=== PATIENT | female | born 1950 | race Caucasian/White ===

== ENCOUNTER → 2019-05-22 | Outpatient (CLI) | payer MEDICARE ==
--- NOTE | 2019-05-22 15:47 | US ---
EXAMINATION TYPE: US pelvis complete transvag DATE OF EXAM: 05/22/2019 COMPARISON: not at this facility CT at [facility] showed cyst. CLINICAL HISTORY: N83.209 CYST OF OVARY. TECHNIQUE: Transvaginal (TV) and Transabdominal (TA) . Date of LMP: Post menopausal, menses ceased at 51. EXAM MEASUREMENTS: Uterus: 6.4 x 2.5 x 3.7 cm Endometrial Stripe: 0.3 cm Right Ovary: 1.5 x 0.9 x 0.7 cm Left Ovary: obscured by bowel/atrophy 1. Uterus: anteverted, wnl 2. Endometrium: wnl 3. Right Ovary: wnl 4. Left Ovary: not sen 5. Bilateral Adnexa: wnl 6. Posterior cul-de-sac: wnl IMPRESSION: Left ovary is not identified due to overlying bowel gas. Right ovary is atrophic but othe rwise unremarkable.
== END | disposition home or self-care (01) ==
LOC: RADUSWWP 14:54
PROVIDERS: ATTEND Family Medicine
DX: N83.311 Acquired atrophy of right ovary (principal)
CPT/HCPCS: 76830; 76856

== ENCOUNTER → 2019-09-08 | Outpatient (CLI) | payer MEDICARE ==
--- NOTE | 2019-09-08 12:10 | US ---
EXAMINATION TYPE: US venous doppler duplex LE RT DATE OF EXAM: 09/08/2019 11:53 AM COMPARISON: None CLINICAL HISTORY: 68-year-old female M25.561 PAIN IN RT KNEE. Patient stated had 11cc fluid drained t jasvir from anterior right knee; c/o right knee soreness after stepping down incorrectly yesterday. SIDE PERFORMED: Right TECHNIQUE: The lower extremity deep venous system is examined utilizing real time linear array sonog tamiko with graded compression, doppler sonography and color-flow sonography. VESSELS IMAGED: Common Femoral Vein Deep Femoral Vein Greater Saphenous Vein * Femoral Vein Popliteal Vein Small Saphenous Vein * Proximal Calf Veins Posterior tibial veins (* superficial vessels) Right Leg: Negative for DVT. Complex fluid collection = 4.2 x 5.0 x 0.6cm is noted anterior right kn ee adjacent to where fluid was withdrawn today. IMPRESSION: 1. No evidence for DVT within the right lower extremity. 2. Residual 5.0 x 4.2 x 0.6 cm prepatellar bursal effusion.
== END | disposition home or self-care (01) ==
LOC: RADUSWWP 11:27
PROVIDERS: ATTEND Orthopaedic Surgery
DX: M25.461 Effusion, right knee (principal); M17.11 Unilateral primary osteoarthritis, right knee; I80.9 Phlebitis and thrombophlebitis of unspecified site

== ENCOUNTER → 2019-12-01 | Outpatient (CLI) | payer MEDICARE ==
--- NOTE | 2019-12-01 15:46 | MR ---
MR left hip HISTORY: Left hip pain Multiplanar multisequence imaging obtained through the pelvis with small [id number] images obtaine d through the left hip No comparisons submitted, there are no plain films. Degenerative disc changes are noted in the lower lumbar spine. There is no evident hip joint effusion . Bone marrow signal is symmetric and within normal limits within the left hip. Articular cartilage s ignal is normal. There is abnormal increased signal on T2-weighted sequences at the insertion of the gluteus tendon at the greater trochanter. There are follicles associated with the left ovary. Uterus is within normal limits, possible small fi broid is noted. No fracture or dislocation. Origins of the hamstring musculature show normal and symm etric appearance. No evident adenopathy. IMPRESSION: Findings consistent with strain or partial tear of the gluteus medius tendon insertion
== END | disposition home or self-care (01) ==
LOC: RADMRIMAIN 13:58
PROVIDERS: ATTEND Orthopaedic Surgery
DX: M25.552 Pain in left hip (principal); M70.62 Trochanteric bursitis, left hip; M54.5 Low back pain

== ENCOUNTER → 2020-03-20 | Outpatient (CLI) | payer MEDICARE | END | disposition home or self-care (01) | LOC: RADMRIMAIN 11:55 | PROVIDERS: ATTEND Physical Medicine & Rehabilitation | DX: Z53.9 Procedure and treatment not carried out, unspecified reason (principal) ==

== ENCOUNTER → 2020-03-22 | Outpatient (CLI) | payer MEDICARE ==
--- NOTE | 2020-03-22 14:01 | MR ---
EXAMINATION TYPE: MR lumbar spine wo con DATE OF EXAM: 03/22/2020 COMPARISON: NONE HISTORY: Low back pain. Spondylosis. Spondylolisthesis all per order. Low back pain into buttocks for over 6 months worse in the left side. History of back surgery. TECHNIQUE: Multiplanar, multisequence imaging of the lumbar spine is performed without IV contrast. FINDINGS: Sagittal images of the lumbar spine show vertebral body heights to appear satisfactory. The re is grade 1 anterolisthesis L3 on L4. Multilevel disc desiccation. Moderate disc space narrowing an d vacuum disc phenomenon L4-L5 level, mild to moderate anterior spurring with heterogeneous Modic typ e II endplate changes. Moderate to severe disc space narrowing with vacuum disc phenomenon and hetero geneous Modic type II endplate changes L5-S1 level, mild anterior spurring. Additional mild/moderate disc space narrowing superior to this. The conus medullaris is normal in position and signal ending a t the inferior L1 level. Axial images at T12-L1 and L1-L2 levels show mild facet degenerative changes bilaterally but spinal c anal is preserved. There are patent Bilateral neural foramina. Axial images at the L2-L3 level mild/moderate broad disc bulge mildly effacing the anterior thecal sa c with mild facet degenerative changes and ligament hypertrophy effacing the posterior lateral thecal sac, patent bilateral neural foramina. Axial images at L3-L4 level shows spondylolisthesis with mild broad disc bulge effacing the anterior thecal sac. Moderate facet degenerative changes and ligament flavum hypertrophy efface the postero-la teral thecal sac. Patent bilateral neural foramina. Axial images at L4-L5 level show mild to moderate facet degenerative changes bilaterally. There is mo st prominent spinal canal stenosis due to broad-based left paracentral disc protrusion on background broad disc bulge axial image 7 corresponding to sagittal image 7. There is effacement of the left lat eral recess and central left L5 nerve. Mild left greater than right bilateral inferior neural foramin al narrowing. Axial images at the L5-S1 level mild facet degenerative changes bilaterally. There is punz-zh-ambnubi e broad disc bulge but the spinal canal is preserved. Patent bilateral neural foramina. There is simple appearing thin-walled cysts in visualized portion of both kidneys. Paraspinal muscle bulk is maintained. IMPRESSION: Multilevel degenerative changes as detailed above. L3-L4 spondylolisthesis is present. Mo st prominent degenerative change L4-L5 level as detailed above, encroachment on the central left L5 n erve is noted.
== END | disposition home or self-care (01) ==
LOC: RADMRIMAIN 12:31
PROVIDERS: ATTEND Physical Medicine & Rehabilitation
DX: M43.16 Spondylolisthesis, lumbar region (principal); M47.26 Other spondylosis with radiculopathy, lumbar region
CPT/HCPCS: 72148

== ENCOUNTER → 2020-08-25 | Outpatient (CLI) | payer MEDICARE ==
[2020-08-25 18:47] LABS: HCT 40.3 % (37.2-46.3); HGB 13.5 g/dL (12.0-15.0); MCHC 33.5 g/dL (32.0-37.0); MCV 89.6 fL (80.0-97.0); Mean Platelet Volume 9.7 fL (9.5-12.2); Platelet Count 295 X 10*3/uL (140-440); RDW 12.8 % (11.5-14.5); WBC 6.68 X 10*3/uL (4.50-10.00)
[2020-08-25 23:44] LABS: African American GFR (CKD) 108.5 (60.0-200.0); Anion Gap 11.9 mmol/L (4.00-12.00); BUN/Creat Ratio 21.67 Ratio (12.00-20.00); Calcium 9.5 mg/dL (8.7-10.3); Carbon Dioxide 27.1 mmol/L (21.6-31.8); Chol/HDL Ratio 5.44; LDL Cholesterol,Calculated 161.4 mg/dL (0.0-131.0); Non-African American GFR(CKD) 93.7 (60.0-200.0); Potassium 3.4 mmol/L (3.5-5.5); VLDL Calculation 38.6 mg/dL (5.00-40.00)
== END | disposition home or self-care (01) ==
LOC: LABWHC1 13:19
PROVIDERS: ATTEND Internal Medicine Interventional Cardiology
DX: E78.5 Hyperlipidemia, unspecified (principal); I10 Essential (primary) hypertension
CPT/HCPCS: 36415; 80048; 80061; 85027

== ENCOUNTER → 2020-09-01 | Outpatient (CLI) | payer MEDICARE ==
[2020-09-01 19:45] LABS: African American GFR (CKD) 103.2 (60.0-200.0); Anion Gap 8.6 mmol/L (4.00-12.00); BUN/Creat Ratio 24.29 Ratio (12.00-20.00); Calcium 9.2 mg/dL (8.7-10.3); Carbon Dioxide 27.4 mmol/L (21.6-31.8); Chol/HDL Ratio 5.1; LDL Cholesterol,Calculated 157.2 mg/dL (0.0-131.0); Potassium 3.9 mmol/L (3.5-5.5); VLDL Calculation 43.8 mg/dL (5.00-40.00)
== END | disposition home or self-care (01) ==
LOC: LABWHC1 08:52
PROVIDERS: ATTEND Internal Medicine Interventional Cardiology
DX: I10 Essential (primary) hypertension (principal); E78.2 Mixed hyperlipidemia
CPT/HCPCS: 36415; 80048; 80061

== ENCOUNTER → 2021-03-10 | Outpatient (CLI) | payer MEDICARE | END | disposition home or self-care (01) | LOC: LABWHC1 11:34 | PROVIDERS: ATTEND Nurse Practitioner | DX: Z53.9 Procedure and treatment not carried out, unspecified reason (principal) ==

== ENCOUNTER → 2021-03-11 | Outpatient (CLI) | payer MEDICARE ==
[2021-03-11 16:17] LABS: African American GFR (CKD) 96.3 (60.0-200.0); Anion Gap 11.5 mmol/L (10.00-18.00); BUN/Creat Ratio 30.12 Ratio (12.00-20.00); Blood Urea Nitrogen 22.2 mg/dL (9.0-27.0); Carbon Dioxide 25.9 mmol/L (20.0-27.5); Non-African American GFR(CKD) 83.1 (60.0-200.0); Potassium 3.9 mmol/L (3.5-5.5)
== END | disposition home or self-care (01) ==
LOC: LABWHC1 08:25
PROVIDERS: ATTEND Nurse Practitioner
DX: I10 Essential (primary) hypertension (principal)
CPT/HCPCS: 36415; 80048

== ENCOUNTER → 2021-05-18 | Outpatient (CLI) | payer MEDICARE ==
[2021-05-18 14:41] LABS: Basophils # (A) 0.02 X 10*3/uL (0.00-0.10); Basophils % (A) 0.2 %; Eosinophils # (A) 0.12 X 10*3/uL (0.04-0.35); Eosinophils % (A) 1.4 %; HCT 37.5 % (37.2-46.3); HGB 12.2 g/dL (12.0-15.0); Immature Grans, Automated 0.2 %; Lymphocytes # (A) 1.54 X 10*3/uL (0.90-5.00); Lymphocytes % (A) 17.7 %; MCH 30.3 pg (27.0-32.0); MCHC 32.5 g/dL (32.0-37.0); MCV 93.1 fL (80.0-97.0); Monocytes # (A) 0.67 X 10*3/uL (0.20-1.00); Monocytes % (A) 7.7 %; NRBC Per 100 WBC 0 /100 WBCS (0.0-0.0); Neutrophils # (A) 6.32 X 10*3/uL (1.80-7.70); Neutrophils % (A) 72.8 %; Platelet Count 219 X 10*3/uL (140-440); RBC 4.03 X 10*6/uL (4.10-5.20); RDW 12.8 % (11.5-14.5); WBC 8.69 X 10*3/uL (4.50-10.00)
[2021-05-18 14:47] LABS: African American GFR (CKD) 104.5 (60.0-200.0); Anion Gap 11.5 mmol/L (10.00-18.00); BUN/Creat Ratio 29.59 Ratio (12.00-20.00); Blood Urea Nitrogen 19.5 mg/dL (9.0-27.0); Calcium 9.3 mg/dL (8.7-10.3); Carbon Dioxide 27.6 mmol/L (20.0-27.5); Non-African American GFR(CKD) 90.2 (60.0-200.0); Potassium 3.5 mmol/L (3.5-5.5)
[2021-05-18 16:48] LABS: Appearance,Urine Clear (Clear); Bacteria,Urine None Seen /HPF (None Seen); Bilirubin,Urine Negative (Negative); Blood,Urine Negative (Negative); Color,Urine Yellow (Yellow); Ketones,Urine Negative (Negative); Leukocyte Esterase,Urine Small (Negative); Nitrite,Urine Negative (Negative); PH, Urine 6.5 (5.0-8.0); Protein,Urine Negative (Negative); RBC,Urine 0-2 /HPF (0-2); Specific Gravity,Urine 1.012 (1.001-1.030); WBC,Urine 0-5 /HPF (0-5)
== END | disposition home or self-care (01) ==
LOC: LABWHC1 09:34
PROVIDERS: ATTEND Urology
DX: Z01.812 Encounter for preprocedural laboratory examination (principal); N39.3 Stress incontinence (female) (male)
CPT/HCPCS: 36415; 80048; 81001; 85025; 87086

== ENCOUNTER 2021-05-25 08:37 | Day surgery (SDC) | payer MEDICARE ==
[2021-05-23 14:28] VITALS: BMI 22.6
--- NOTE | 2021-05-24 18:10 | P.GSHP ---
History of Present Illness H&P Date: 05/24/21 70 yo female with mixed urinary incontinence. She was treated by a previous urologist for urgency incontinence with anticholinergics that failed. By history she has 4 ppd shikha. SHe has failed kegal exercises. She underwent urodynamics that didnt support her previous urgency incontinence. We discussed treatment for her 4ppd shikha Her exam and uds showed a hypermobile urethra and and higher lpp. SHe was given multiple treatment options. She comes for a transobturator tape with obtyrx graft. The risks and complications have been discussed including the mesh controversy. - Constitutional Constitutional: Denies chills, Denies fever - EENT Eyes: denies blurred vision, denies pain Ears, nose, mouth and throat: Denies headache, Denies sore throat - Cardiovascular Cardiovascular: Denies chest pain, Denies shortness of breath - Respiratory Respiratory: Denies cough, Denies 7 - Gastrointestinal Gastrointestinal: Denies abdominal pain, Denies diarrhea, Denies nausea, Denies vomiting - Genitourinary (Female) Genitourinary: Denies dysuria, Denies hematuria - Genitourinary (Male) Genitourinary: Denies dysuria, Denies hematuria - Musculoskeletal Musculoskeletal: Denies myalgias - Integumentary Integumentary: Denies pruritus, Denies rash - Neurological Neurological: Denies numbness, Denies weakness - Psychiatric Psychiatric: Denies anxiety, Denies depression - Endocrine Endocrine: Denies fatigue, Denies weight change Past Medical History Past Medical History: Cancer, GERD/Reflux, Hypertension, Musculoskeletal Disorder Additional Past Medical History / Comment(s): frequent UTIs and leakage, hx sarcoidosis, pain back L5 and down rt leg-resolved,basal cell skin CA-removed History of Any Multi-Drug Resistant Organisms: None Reported Past Surgical History: Back Surgery, Cholecystectomy, Orthopedic Surgery Additional Past Surgical History / Comment(s): upper C3 cervical fusion; L5 low back fusion,pain procedures,benign left breast lump removed Past Anesthesia/Blood Transfusion Reactions: Previous Problems w/ Anesthesia Additional Past Anesthesia/Blood Transfusion Reaction / Comment(s): "hard time waking up" Smoking Status: Never smoker - Past Family History Father Family Medical History: Cancer Additional Family Medical History / Comment(s): thyroid CA Mother Family Medical History: No Reported History Medications and Allergies Home Medications Medication Instructions Recorded Confirmed Type Metoprolol Tartrate [Lopressor] 25 mg PO QAM 10/12/14 05/23/21 History Atorvastatin [Lipitor] 20 mg PO DAILY 05/23/21 05/23/21 History Famotidine 20 mg PO BID 05/23/21 05/23/21 History Lisinopril-Hctz 10-12.5 mg 1 tab PO 1200 05/23/21 05/23/21 History [Zestoretic 10-12.5] Potassium Chloride ER [K-Dur 20] 20 meq PO HS 05/23/21 05/23/21 History Vit C/E/Zn/Coppr/Lutein/Zeaxan 1 tab PO HS 05/23/21 05/23/21 History [Preservision Areds 2 Chew Tab] busPIRone HCL 10 mg PO HS 05/23/21 05/23/21 History hydrALAZINE HCL 25 mg PO TID 05/23/21 05/23/21 History Allergies Allergy/AdvReac Type Severity Reaction Status Date / Time codeine Allergy Rash/Hives Verified 05/23/21 14:14 Penicillins Allergy Rash/Hives Verified 05/23/21 14:14 shellfish derived [Shellfish] Allergy Nausea & Verified 05/23/21 14:14 Vomiting Sulfa (Sulfonamide Allergy Rash/Hives, Verified 05/23/21 14:14 Antibiotics) Headaches Surgical - Exam - General well developed, well nourished, no distress - Eyes normal ocular movement, no icteric - ENT no hearing loss, no congestion - Neck no masses, trachea midline - Respiratory normal respiratory effort, clear to auscultation - Abdomen Abdomen: soft, non tender, no guarding, no rigid, no rebound - Genitourinary hypermobile urethra with shikha, positive nayeli test. no normal external genitalia, no normal perineum, no perineal/vulvar lesions, no other - Integumentary no rash, no abnormal pigmentation - Neurologic no disoriented, no combative - Psychiatric oriented to time, oriented to person, oriented to place, speech is normal, memory intact Assessment and Plan Assessment: Impression: SHIKHA Plan: TOT with obtyrx graft, cystoscopy
[~2021-05-25 08:37] MED LIST: GENTAMICIN 90 MG in SODIUM CHLORIDE 0.9% 100 ML IVPB PRN
[2021-05-25] MEDS ORDERED: ONDANSETRON 4 MG/2 ML VIAL IVP ONE (08:52)
[2021-05-25] MEDS ORDERED: HYDROmorphone 0.5 MG/0.5 ML SYRINGE IVP PRN (08:52)
[2021-05-25] MEDS ORDERED: LACTATED RINGERS 1,000 ML IV SCH (08:52)
[2021-05-25] MEDS ORDERED: LIDOCAINE 1% (10MG/ML) FOR IV START INTRADERMA PRN (08:52)
[2021-05-25] MEDS ORDERED: DEXAMETHASONE SOD PHOSPHATE 4 MG/ML 1 ML VIAL IV ONE (08:52)
[2021-05-25] MEDS ORDERED: METOPROLOL TARTRATE 5 MG/5 ML VIAL IVP ONE (09:58)
[2021-05-25] MEDS ORDERED: HYDROmorphone (PF) 1 MG/ML ONE (09:58)
[2021-05-25] MEDS ORDERED: SUCCINYLCHOLINE CHLORIDE 100 MG/5 ML SYR IV ONE (09:58)
[2021-05-25] MEDS ORDERED: MIDAZOLAM 2 MG/2 ML VIAL ONE (09:58)
[2021-05-25] MEDS ORDERED: PROPOFOL 10 MG/ML 20 ML VIAL IV ONE (09:58)
[2021-05-25] MEDS ORDERED: fentaNYL (PF) 50 MCG/ML 2 ML AMP ONE (09:58)
[2021-05-25] MEDS ORDERED: LIDOCAINE 1% INJ 10MG/ML (20 ML MDV) ONE (09:58)
[2021-05-25] MEDS ORDERED: VASOPRESSIN 20 UNIT/ML 1 ML VIAL SQ ONE (10:03)
[2021-05-25] MEDS ORDERED: GENTAMICIN 80 MG in SODIUM CHLORIDE 0.9% 500 ML 500 ML IRRIGATION ONE (10:24)
[2021-05-25] MEDS ORDERED: BACITRACIN ZINC 500 UNIT/GM OINT 28.4 GM TUBE TOPICAL ONE (10:28)
[2021-05-25] MEDS ORDERED: KETOROLAC 15 MG/ML 1 ML VIAL IVP PRN (10:55)
[2021-05-25] MEDS ORDERED: HYDROcodone/APAP 5-325MG 1 EACH TAB PO PRN (10:57)
[2021-05-25] MEDS ORDERED: ONDANSETRON 4 MG/2 ML VIAL IVP PRN (10:57)
--- NOTE | 2021-05-25 11:02 | P.OP ---
Date of Procedure: 05/25/21 Preoperative Diagnosis: Stress urinary incontinence Postoperative Diagnosis: Same Procedure(s) Performed: Cystoscopy with trans-obturator tape (obtyrx 2) Anesthesia: ADAL Surgeon: Phillip Nguyen Pathology: none sent Condition: stable Disposition: PACU Indications for Procedure: The patient is 70. She has documented stress urinary incontinence. She comes for a trans-obturator tape cystoscopy the risks including mesh controversy, alternatives have been discussed Description of Procedure: The patient is brought to the operating suite. She is given a general endotracheal anesthesia. She's placed in lithotomy position with a sterile prep and drape. The labia are sewn laterally with 2-0 silk. A vaginal speculum was introduced. A 16-Paraguayan Parson catheters introduced. The anterior vaginal mucosa is elevated off the submucosa with 10 mL of a mixture of 20 g of Pitres sin and 200 mL of saline and a midline suburethral incision is made. I dissect lateral the bladder neck bilaterally. The space is irrigated thoroughly with antibiotic irrigation. Incisions in the inguinal crease at the level of the clitoris are made bilaterally. The graft introducers or introduced through these incisions through the obturator foramen into the vaginal space bilaterally. I then removed the Parson and pass the 17-Paraguayan sheath and Foroblique lens for the cystoscope to inspect the bladder to make sure there is no evidence of perforation of the bladder and there is none. I then attached the grafted introducers and pull the graft into the suburethral position. Redundant graft at the inguinal incision is removed. The sheath is removed. Graft lay nicely in the mid urethra without tension. The vaginal mucosa was closed with a running 3-0 Vicryl. A vaginal packing with 2 inch Rebel antibiotic ointment is placed in the vagina. The inguinal incisions are closed with 4-0 Vicryl. The urine remains clear. The patient is awakened and returned recovery room in good condition. She tolerated the procedure well be placed in the hospital overnight. Since 25 mL. Her condition is good.
[2021-05-25] MEDS ORDERED: LISINOPRIL-HCTZ 10-12.5 MG 1 EACH TAB PO SCH (12:00)
[2021-05-25 13:54] VITALS: RESP 16
[2021-05-25] MEDS: hydrALAZINE HCL 25 MG TAB PO SCH ×2 (16:23→20:23)
[2021-05-25] MEDS: FAMOTIDINE 20 MG TAB PO SCH (20:23)
[2021-05-25] MEDS ORDERED: busPIRone HCl 10 MG TAB PO SCH (21:00)
[2021-05-25] MEDS ORDERED: POTASSIUM CHLORIDE ER 20 MEQ TAB.ER PO SCH (21:00)
--- NOTE | 2021-05-26 07:15 | P.DS ---
Providers Attending physician: Phillip Nguyen Primary care physician: [facility] Course: The patient was admitted to the hospital 05/25/2021 for a trans-obturator tape/cystoscopy for her stress incontinence. This was done uneventfully. Postoperatively other than some mild discomfort she did well. Vital signs are stable and she is afebrile. The catheter and the packing of been removed this morning. She has not voided yet. If she voids alright she'll be discharged home. She'll go home on a regular diet limited activity. She'll resume her home medication. She'll follow-up in the office next week. A small prescription of Atlantic has been given. Postoperative instructions have been given. Patient Condition at Discharge: Good Plan - Discharge Summary Discharge Rx Participant: No New Discharge Prescriptions: New HYDROcodone/APAP 5-325MG [Atlantic 5-325] 1 tab PO Q4HR PRN #10 tab PRN Reason: Pain No Action Metoprolol Tartrate [Lopressor] 25 mg PO QAM Potassium Chloride ER [K-Dur 20] 20 meq PO HS Famotidine 20 mg PO BID Lisinopril-Hctz 10-12.5 mg [Zestoretic 10-12.5] 1 tab PO 1200 Atorvastatin [Lipitor] 20 mg PO DAILY busPIRone HCL 10 mg PO HS hydrALAZINE HCL 25 mg PO TID Vit C/E/Zn/Coppr/Lutein/Zeaxan [Preservision Areds 2 Chew Tab] 1 tab PO HS Discharge Medication List Metoprolol Tartrate [Lopressor] 25 mg PO QAM 10/12/14 [History] Atorvastatin [Lipitor] 20 mg PO DAILY 05/23/21 [History] Famotidine 20 mg PO BID 05/23/21 [History] Lisinopril-Hctz 10-12.5 mg [Zestoretic 10-12.5] 1 tab PO 1200 05/23/21 [History] Potassium Chloride ER [K-Dur 20] 20 meq PO HS 05/23/21 [History] Vit C/E/Zn/Coppr/Lutein/Zeaxan [Preservision Areds 2 Chew Tab] 1 tab PO HS 05/23/21 [History] busPIRone HCL 10 mg PO HS 05/23/21 [History] hydrALAZINE HCL 25 mg PO TID 05/23/21 [History] HYDROcodone/APAP 5-325MG [Atlantic 5-325] 1 tab PO Q4HR PRN #10 tab 05/26/21 [Rx] Follow up Appointment(s)/Referral(s): Phillip Nguyen MD [STAFF PHYSICIAN] - 06/01/21 Discharge Disposition: HOME SELF-CARE
[2021-05-26] MEDS: FAMOTIDINE 20 MG TAB PO SCH (08:07)
[2021-05-26] MEDS: hydrALAZINE HCL 25 MG TAB PO SCH (08:07)
[2021-05-26] MEDS ORDERED: ATORVASTATIN 20 MG TAB PO SCH (09:00)
[2021-05-26] MEDS ORDERED: METOPROLOL TARTRATE 25 MG TAB PO SCH (09:00)
[2021-05-26 09:01] VITALS: BP 163/74; PULSE 84; TEMP 98.1
== END 2021-05-26 09:53 | disposition home or self-care (01) ==
LOC: OR 08:37 → 4FBP 10:45 → OR 05-26 09:53
PROVIDERS: ATTEND Urology
DX: N39.3 Stress incontinence (female) (male) (principal); I10 Essential (primary) hypertension; K21.9 Gastro-esophageal reflux disease without esophagitis; M54.9 Dorsalgia, unspecified; Z87.440 Personal history of urinary (tract) infections; Z85.828 Personal history of other malignant neoplasm of skin; Z79.899 Other long term (current) drug therapy; Z88.2 Allergy status to sulfonamides; Z88.5 Allergy status to narcotic agent; Z88.0 Allergy status to penicillin; Z91.013 Allergy to seafood; Z90.49 Acquired absence of other specified parts of digestive tract; Z98.890 Other specified postprocedural states; Z98.1 Arthrodesis status; Z80.8 Family history of malignant neoplasm of other organs or systems
CPT/HCPCS: 57288; C1771; J2250; J1580 ×2; J1100; J2405; J2001; J3010; J1170 ×2; J0330; J2704

== ENCOUNTER → 2022-06-28 | Outpatient (CLI) | payer MEDICARE ==
--- NOTE | 2022-06-28 14:41 | CT ---
EXAMINATION TYPE: CT abdomen pelvis wo con CT DLP: 324.3 mGycm, Automated exposure control for dose reduction was used. DATE OF EXAM: 06/28/2022 1:03 PM COMPARISON: None CLINICAL INDICATION:Female, 71 years old with history of N20.0 Kidney stone protocol; Bilateral flank pain and frequent UTI's. TECHNIQUE: Standard CT of the abdomen and pelvis without IV or oral contrast. Lack of IV or oral co ntrast limits evaluation of solid and hollow organ viscera. Coronal and sagittal reformats were perfo rmed. FINDINGS: LOWER CHEST: Unremarkable ABDOMEN LIVER: Unremarkable noncontrast appearance. GALLBLADDER AND BILE DUCTS: The gallbladder is surgically absent. PANCREAS: Unremarkable noncontrast appearance. SPLEEN: Unremarkable noncontrast appearance. ADRENAL GLANDS: Unremarkable noncontrast appearance. KIDNEYS AND URETERS: No evidence of hydronephrosis. There are 3 nonobstructive right renal calculi wi th largest measuring up to 3.5 mm. No left renal calculi identified. Bilateral renal cysts identified with largest involving the right kidney measuring up to 4.5 cm. PELVIS BLADDER: Incompletely distended but grossly unremarkable. REPRODUCTIVE: Unremarkable. ABDOMEN & PELVIS STOMACH AND BOWEL: Stomach is unremarkable. Diverticulum involving second/third portion of the duoden um. Distal colonic diverticulosis without evidence for acute diverticulitis. No evidence of bowel obs truction. PERITONEUM: No evidence of pneumoperitoneum or free fluid. VASCULATURE: Moderate atherosclerotic calcifications are present throughout the abdominal aorta and i ts branches. No evidence of aortic aneurysm. MUSCULOSKELETAL: No acute osseous abnormalities. Degenerative changes of the pubic symphysis and visu alized spine. LYMPH NODES: No gross evidence for lymphadenopathy. SOFT TISSUE/ABDOMINAL WALL: Unremarkable IMPRESSION: 1. No acute abdominal/pelvic process. No evidence of obstructive uropathy. 2. Nonobstructive right renal calculi. 3. Colonic diverticulosis without evidence for acute diverticulitis.
== END | disposition home or self-care (01) ==
LOC: RADCTMAIN 12:44
PROVIDERS: ATTEND Family Medicine
DX: N20.0 Calculus of kidney (principal); K57.30 Diverticulosis of large intestine without perforation or abscess without bleeding
CPT/HCPCS: 74176

== ENCOUNTER → 2022-11-24 | Outpatient (CLI) | payer MEDICARE ==
--- NOTE | 2022-11-24 14:55 | MR ---
EXAMINATION TYPE: MR hip RT wo con DATE OF EXAM: 11/24/2022 COMPARISON: CT abdomen and pelvis June 28, 2022 HISTORY: Right hip pain, locking, limited movement for one year without improvement with physical the rapy. Unilateral primary osteoarthritis and trochanteric bursitis per order. Standard multiplanar, multisequence MRI departmental protocol Multiplanar, multisequence images of the pelvis focusing on right hip were acquired without contrast. FINDINGS: Symmetric moderate axial joint space loss and mild acetabular spurring is present. There ar e small hip joint effusions presumed physiologic bilaterally. Femoral head shapes are maintained bila terally. No suspicious increased T2 signal or osseous edema. No serpiginous diminished T1 signal or a vascular necrosis is evident bilaterally. Increased fluid signal at level of greater trochanters bila terally more prominent on the right consistent with trochanteric bursitis/insertional tendinosis is n oted. Muscle bulk is maintained bilaterally and symmetric in appearance. There is no groin hernia or suspicious adenopathy seen bilaterally. Urinary bladder appears within normal limits. Anteverted uterus is seen. Left ovary has a few small s imple appearing thin-walled cysts on axial image 27. No suspicious bowel dilatation is seen. A few di stal colonic diverticula are seen. No free fluid in the pelvis is noted. IMPRESSION: Fairly moderate degenerative changes of both hips as detailed above. Right greater than l eft trochanteric bursitis/insertional tendinosis is also noted.
== END | disposition home or self-care (01) ==
LOC: RADMRIMAIN 05:46
PROVIDERS: ATTEND Orthopaedic Surgery
DX: M70.61 Trochanteric bursitis, right hip (principal); M16.11 Unilateral primary osteoarthritis, right hip; M70.62 Trochanteric bursitis, left hip; M16.0 Bilateral primary osteoarthritis of hip

== ENCOUNTER 2022-12-11 18:06 | Emergency (ER) | payer MEDICARE ==
[2022-12-11 18:18] VITALS: TEMP 98.1
[2022-12-11 18:51] LABS: ALT 22 U/L (4-34); AST 28 U/L (14-36); African American GFR (CKD) >90 (>60 ml/min/1.73 sqM); Albumin 4.4 g/dL (3.5-5.0); Alkaline Phosphatase 128 U/L (38-126); Anion Gap 12 mmol/L; Blood Urea Nitrogen 15 mg/dL (7-17); Calcium 9.3 mg/dL (8.4-10.2); Carbon Dioxide 26 mmol/L (22-30); Chloride 104 mmol/L (98-107); Glucose 121 mg/dL (74-99); Non-African American GFR(CKD) 89 (>60 ml/min/1.73 sqM); Potassium 3.4 mmol/L (3.5-5.1); Sodium 142 mmol/L (137-145); Total Bilirubin 0.9 mg/dL (0.2-1.3); Total Protein 7.1 g/dL (6.3-8.2)
[2022-12-11 18:57] LABS: INR 0.9 (<1.2); Partial Thromboplastin Time 23.6 sec (22.0-30.0); Prothrombin Time 9.7 sec (9.0-12.0)
[2022-12-11 19:00] LABS: Basophils % (A) 0 %; Eosinophils # (A) 0.2 k/uL (0-0.7); Eosinophils % (A) 4 %; HCT 36.9 % (34.0-46.0); HGB 12.7 gm/dL (11.4-16.0); Lymphocytes # (A) 1.5 k/uL (1.0-4.8); Lymphocytes % (A) 24 %; MCH 30.4 pg (25.0-35.0); MCHC 34.4 g/dL (31.0-37.0); MCV 88.6 fL (80.0-100.0); Mean Platelet Volume 7.9; Monocytes # (A) 0.4 k/uL (0-1.0); Monocytes % (A) 7 %; Neutrophils % (A) 64 %; Platelet Count 160 k/uL (150-450); RBC 4.16 m/uL (3.80-5.40); RDW 13.7 % (11.5-15.5); WBC 6.2 k/uL (3.8-10.6)
--- NOTE | 2022-12-11 20:05 | XR ---
EXAMINATION TYPE: XR chest 2V DATE OF EXAM: 12/11/2022 8:00 PM CLINICAL INDICATION:Female, 71 years old with history of Chest Pain; PHH COMPARISON: None TECHNIQUE: XR chest 2V Frontal and lateral views of the chest. FINDINGS: Lungs/Pleura: There is flattening of the diaphragm with increased lucency of the lungs. No evidence o f pneumothorax, pleural effusion or focal consolidation. Pulmonary vascularity: Unremarkable. Heart/mediastinum: Cardiomediastinal silhouette is unremarkable. Musculoskeletal: No acute osseous pathology. There is fixation hardware in the lower cervical spine. IMPRESSION: 1. No acute cardiopulmonary disease process. 2. COPD changes.
--- NOTE | 2022-12-11 20:43 | ED ---
Chest Pain HPI - General Chief Complaint: Chest Pain Stated Complaint: Chest Pain,Sob Time Seen by Provider: 12/11/22 20:34 Source: patient, RN notes reviewed, old records reviewed Mode of arrival: wheelchair Limitations: no limitations - History of Present Illness Initial Comments: This is a 72-year-old female to the emergency department for evaluation. Patient presents today for evaluation regards to chest pain. Patient has persistent chest pain here in the ER the patient's chest pain began about an hour prior to arrival. Patient is no travel show sick contacts no current shortness of breath. No recent fever cough or congestion. No history of heart disease no high blood pressure high cholesterol no diabetes nonsmoker with no family history of heart disease - Related Data Home Medications Medication Instructions Recorded Confirmed Metoprolol Tartrate [Lopressor] 25 mg PO QAM 10/12/14 05/23/21 Atorvastatin [Lipitor] 20 mg PO DAILY 05/23/21 05/23/21 Famotidine 20 mg PO BID 05/23/21 05/23/21 Lisinopril-Hctz 10-12.5 mg 1 tab PO 1200 05/23/21 05/23/21 [Zestoretic 10-12.5] Potassium Chloride ER [K-Dur 20] 20 meq PO HS 05/23/21 05/23/21 Vit C/E/Zn/Coppr/Lutein/Zeaxan 1 tab PO HS 05/23/21 05/23/21 [Preservision Areds 2 Chew Tab] busPIRone HCL 10 mg PO HS 05/23/21 05/23/21 hydrALAZINE HCL 25 mg PO TID 05/23/21 05/23/21 Previous Rx's Medication Instructions Recorded HYDROcodone/APAP 5-325MG [[place] 1 tab PO Q4HR PRN #10 tab 05/26/21 5-325] Allergies Allergy/AdvReac Type Severity Reaction Status Date / Time codeine Allergy Rash/Hives Verified 12/11/22 18:13 Penicillins Allergy Rash/Hives Verified 12/11/22 18:13 shellfish derived [Shellfish] Allergy Nausea & Verified 12/11/22 18:13 Vomiting Sulfa (Sulfonamide Allergy Rash/Hives, Verified 12/11/22 18:13 Antibiotics) Headaches Review of Systems ROS Statement: Those systems with pertinent positive or pertinent negative responses have been documented in the HPI. ROS Other: All systems not noted in ROS Statement are negative. EKG Findings - EKG Comments: EKG Findings:: EKG is sinus 83 RI 158 QRS 110 QTc 432 - EKG Results: EKG: interpreted by ARNOL Past Medical History Past Medical History: GERD/Reflux, Hypertension, Musculoskeletal Disorder Additional Past Medical History / Comment(s): sarcoidosis, pain back L5 and down rt leg History of Any Multi-Drug Resistant Organisms: None Reported Past Surgical History: Back Surgery, Cholecystectomy, Orthopedic Surgery, Tonsillectomy Additional Past Surgical History / Comment(s): upper C3 cervical fusion; L5 low back fusion Past Anesthesia/Blood Transfusion Reactions: Previous Problems w/ Anesthesia Additional Past Anesthesia/Blood Transfusion Reaction / Comment(s): "hard time waking up" Past Psychological History: No Psychological Hx Reported Smoking Status: Never smoker Past Alcohol Use History: Occasional Past Drug Use History: None Reported - Past Family History Father Family Medical History: Cancer Mother Family Medical History: No Reported History General Exam Limitations: no limitations General appearance: alert, in no apparent distress Head exam: Present: atraumatic, normocephalic, normal inspection Eye exam: Present: normal appearance, PERRL, EOMI. Absent: scleral icterus, conjunctival injection, periorbital swelling ENT exam: Present: normal exam, mucous membranes moist Neck exam: Present: normal inspection. Absent: tenderness, meningismus, lymphadenopathy Respiratory exam: Present: normal lung sounds bilaterally. Absent: respiratory distress, wheezes, rales, rhonchi, stridor Cardiovascular Exam: Present: regular rate, normal rhythm, normal heart sounds. Absent: systolic murmur, diastolic murmur, rubs, gallop, clicks GI/Abdominal exam: Present: soft, normal bowel sounds. Absent: distended, tenderness, guarding, rebound, rigid Extremities exam: Present: normal inspection, full ROM, normal capillary refill. Absent: tenderness, pedal edema, joint swelling, calf tenderness Back exam: Present: normal inspection Neurological exam: Present: alert, oriented X3, CN II-XII intact Psychiatric exam: Present: normal affect, normal mood Skin exam: Present: warm, dry, intact, normal color. Absent: rash Course Vital Signs 12/11/22 12/11/22 12/11/22 18:11 20:58 22:20 Temperature 98.1 F Pulse Rate 89 87 86 Respiratory 16 18 18 Rate Blood Pressure 217/94 194/93 187/93 O2 Sat by Pulse 98 98 96 Oximetry - Reevaluation(s) Reevaluation #1: 12/11/22 Medical records reviewed Reevaluation #2: 12/11/22 Patient symptoms improved Reevaluation #3: 12/11/22 Patient informed results and questions are answered Reevaluation #4: Was pt. sent in by a medical professional or institution (, [facility], SHERIFFS OFFICER, urgent care, hospital, or [facility]...) When possible be specific @ -no Did you speak to anyone other than the patient for history (EMS, parent, family, police, friend...)? What history was obtained from this source @ -no Did you review nursing and triage notes (agree or disagree)? Why? @ -agree Are old charts reviewed (outside hosp., previous admission, EMS record, old EKG, old radiological studies, urgent care reports/EKG's, [facility] records)? Report findings @ -yes Differential Diagnosis (chest pain, altered mental status, abdominal pain women, abdominal pain men, vaginal bleeding, weakness, fever, dyspnea, syncope, hea dache, dizziness, GI bleed, back pain, seizure, CVA, palpatations, mental health, musculoskeletal)? @ -prior EKG interpreted by me (3pts min.). @ -yes X-rays interpreted by me (1pt min.). @ -yes CT interpreted by me (1pt min.). @ -no U/S interpreted by me (1pt. min.). @ -no What testing was considered but not performed or refused? (CT, X-rays, U/S, labs)? Why? @ -none What meds were considered but not given or refused? Why? @ -none Did you discuss the management of the patient with other professionals (professionals i.e. , [facility], SHERIFFS OFFICER, lab, RT, psych nurse, health social work professor, 2nd grade teacher, teacher, evp chief exploration officer, spring encaser)? Give summary @ -no Was smoking cessation discussed for >3mins.? @ -no Was critical care preformed (if so, how long)? @ -no Were there social determinants of health that impacted care today? How? (Homelessness, low income, unemployed, alcoholism, drug addiction, transportation, low edu. Level, literacy, decrease access to med. care, intermediate, rehab)? @ -none Was there de-escalation of care discussed even if they declined (Discuss DNR or withdrawal of care, Hospice)? DNR status @ -no What co-morbidities impacted this encounter? (DM, HTN, Smoking, COPD, CAD, Canc er, CVA, ARF, Chemo, Hep., AIDS, mental health diagnosis, sleep apnea, morbid obesity)? @ -none Was patient admitted / discharged? Hospital course, mention meds given and route, prescriptions, significant lab abnormalities, going to OR and other pertinent info. @ - 72 female to the emergency department for evaluation no history of chest pain or heart disease or cardiac risk factors. Chest pain started prior to arrival patient now feels well. Patient can be discharged Discharge Undiagnosed new problem with uncertain prognosis? @ -no Drug Therapy requiring intensive monitoring for toxicity (Heparin, Nitro, Insulin, Cardizem)? @ -no Were any procedures done? @ -no Diagnosis/symptom? @ -Chest pain Acute, or Chronic, or Acute on Chronic? @ -Acute Uncomplicated (without systemic symptoms) or Complicated (systemic symptoms)? @ -Complicated Side effects of treatment? @ -no Exacerbation, Progression, or Severe Exacerbation? @ -exacerbation Poses a threat to life or bodily function? How? (Chest pain, [place], [place], pneumonia, PE, COPD, DKA, ARF, appy, cholecystitis, CVA, Diverticulitis, Homicidal, Suicidal, threat to staff... and all critical care pts) @ -yes with chest pain being ACS Reevaluation #5: Differential Chest Pain: Stable Angina, Unstable Angina, STEMI, NSTEMI Aortic Dissection, Pneumothorax, Musculoskeletal, Esophageal Spasm GERD, Cholecystitis, Pancreatitis, Zoster, this is not meant to be an all-inclusive list. Chest Pain MDM - MDM 72 female to the emergency department for evaluation no history of chest pain or heart disease or cardiac risk factors. Chest pain started prior to arrival patient now feels well. Patient can be discharged Disposition Clinical Impression: Atypical chest pain, Chest pain Disposition: HOME SELF-CARE Condition: Good Instructions (If sedation given, give patient instructions): Chest Pain (ED) Is patient prescribed a controlled substance at d/c from ED?: No Referrals: Jose Alberto Ramsey MD [Primary Care Provider] - 1-2 days Time of Disposition: 22:15
[2022-12-11 21:01] VITALS: RESP 18
[2022-12-11 22:29] VITALS: BP 187/93; PULSE 86
== END 2022-12-11 22:21 | disposition home or self-care (01) ==
LOC: EC 18:06
DX: R07.89 Other chest pain (principal); I10 Essential (primary) hypertension; K21.9 Gastro-esophageal reflux disease without esophagitis; Z79.899 Other long term (current) drug therapy; Z88.0 Allergy status to penicillin; Z88.2 Allergy status to sulfonamides; Z88.5 Allergy status to narcotic agent; Z91.013 Allergy to seafood; Z90.49 Acquired absence of other specified parts of digestive tract
CPT/HCPCS: 36415; 71046; 80053; 83735; 84484; 85025; 85610; 85730; 93005; 99285